=== PATIENT | male | born 1985 | race Caucasian/White ===

== ENCOUNTER 2017-11-03 08:40 | Emergency (ER) | payer OTHER ==
[2017-11-03 09:11] VITALS: BP 174/88
--- NOTE | 2017-11-03 10:08 | UC ---
Throat Pain/Nasal David HPI - HPI Summary HPI Summary: Congestion, sore throat, mild cough. No fever or vomiting. He has no strep throat contacts. He has no medical problems. - History of Current Complaint Chief Complaint: UCRespiratory Stated Complaint: ST/STUFFY NOSE Time Seen by Provider: 11/03/17 09:15 Hx Obtained From: Patient Onset/Duration: Gradual Onset, Lasting Days Severity: Moderate Cough: Nonproductive Associated Signs & Symptoms: Positive: Dysphagia. Negative: Vomiting, Rash - Epiglottits Risk Factors Epiglottis Risk Factors: Negative - Allergies/Home Medications Allergies/Adverse Reactions: Allergies Allergy/AdvReac Type Severity Reaction Status Date / Time No Known Allergies Allergy Verified 11/03/17 09:11 Home Medications: Home Medications Diclofenac Sodium [Diclofenac Sodium Xr] 50 mg PO DAILY 11/03/17 [History Confirmed 11/03/17] PMH/Surg Hx/FS Hx/Imm Hx Previously Healthy: Yes - Surgical History Surgical History: None - Family History Known Family History: Positive: Other - No strep throat. - Social History Occupation: Employed Full-time Alcohol Use: Occasionally Substance Use Type: None Smoking Status (MU): Never Smoked Tobacco Review of Systems ENT: Sore Throat, Sinus Congestion Respiratory: Cough All Other Systems Reviewed And Are Negative: Yes Physical Exam Triage Information Reviewed: Yes Appearance: Well-Appearing, No Pain Distress, Well-Nourished Vital Signs: Initial Vital Signs Temp 98 F 11/03/17 09:07 Pulse 88 11/03/17 09:07 Resp 14 11/03/17 09:07 BP 174/88 11/03/17 09:07 Pulse Ox 98 11/03/17 09:07 Vital Signs Reviewed: Yes Eyes: Positive: Conjunctiva Clear ENT: Positive: Pharyngeal erythema, Nasal congestion, TMs normal. Negative: TM bulging, TM dull, TM red, Tonsillar swelling, Tonsillar exudate, Trismus, Muffled voice, Sinus tenderness, Uvula midline Neck: Positive: Supple, Nontender, No Lymphadenopathy Respiratory: Positive: Normal breath sounds, No respiratory distress, No accessory muscle use. Negative: Respiratory distress Cardiovascular: Positive: RRR, No Murmur, Pulses Normal Abdomen Description: Positive: Nontender, No Organomegaly. Negative: Distended , Guarding Musculoskeletal: Positive: Strength Intact, ROM Intact, No Edema Neurological: Positive: Alert, Muscle Tone Normal. Negative: Fatigued Psychological: Positive: Age Appropriate Behavior Skin: Negative: rashes Throat Pain/Nasal Course/Dx - Course Course Of Treatment: No classic strep throat symptoms and rapid strep neg. This is most c/w URI. - Differential Dx/Diagnosis Provider Diagnoses: Sore throat. URI. Discharge - Discharge Plan Condition: Good Disposition: HOME Patient Education Materials: Upper Respiratory Infection (ED) Additional Instructions: Mucinex, tylenol and motrin.
== END 2017-11-03 10:16 | disposition home or self-care (01) ==
LOC: UCCORT 08:40
DX: J02.9 Acute pharyngitis, unspecified (principal); J06.9 Acute upper respiratory infection, unspecified; Z72.89 Other problems related to lifestyle
CPT/HCPCS: 87651; 99201; G0463